=== PATIENT | female | born 1990 | race Caucasian/White ===

== ENCOUNTER 2019-03-18 18:40 | Emergency (ER) | payer SELFPAY ==
[~2019-03-18] VITALS: Ht 170.2 cm; Wt 52.0 kg
[2019-03-18 19:57] VITALS: BP 138/76
== END 2019-03-18 19:57 | disposition left against medical advice (07) | DRG 605 ==
LOC: ED 18:40
DX: S00.83XA Contusion of other part of head, initial encounter (principal); Y35.813A Legal intervention involving manhandling, suspect injured, initial encounter; S60.032A Contusion of left middle finger without damage to nail, initial encounter; X58.XXXA Exposure to other specified factors, initial encounter; Z91.19 Patient's noncompliance with other medical treatment and regimen

== ENCOUNTER 2020-07-24 11:17 | Emergency (ER) | payer SELFPAY ==
[~2020-07-24] VITALS: Ht 170.2 cm; Wt 62.0 kg
[2020-07-24 13:30] VITALS: BP 122/86
== END 2020-07-24 13:30 | disposition home or self-care (01) | DRG 159 ==
LOC: ED 11:17
PROC: 0CQ0XZZ Repair Upper Lip, External Approach (ICD-10-PCS; principal; 2020-07-24)
DX: S01.511A Laceration without foreign body of lip, initial encounter (principal); F17.210 Nicotine dependence, cigarettes, uncomplicated; W22.09XA Striking against other stationary object, initial encounter; Y92.009 Unspecified place in unspecified non-institutional (private) residence as the place of occurrence of the external cause

== ENCOUNTER 2020-07-26 18:14 | Emergency (ER) | payer SELFPAY ==
[~2020-07-26] VITALS: Ht 170.2 cm; Wt 59.1 kg
[2020-07-26 19:04] LABS: HEMATOCRIT 39.9 % (37.0-47.0); HEMOGLOBIN 13.6 g/dl (12.0-16.0); IMMATURE GRANULOCYTES 0.2 % (0.0-5.0); MEAN CELL VOLUME 102.8 fL CALC (80.0-100.0); MEAN CORPUSCULAR HGB 35.1 pG CALC (26.0-32.0); MEAN CORPUSCULAR HGB CONC 34.1 g/dL CAL (32.0-36.0); NEUT# 2.54 thou/uL (2.00-7.15); RED BLOOD COUNT 3.88 mill/uL (4.20-5.60); RED CELL DISTRI WIDTH 12.4 % (11.5-15.5)
[2020-07-26 19:24] LABS: ALBUMIN 3.9 g/dL (3.2-5.0); ALKALINE PHOSPHATASE 82 u/l (38-126); ANION GAP 13 (6-22 (CALC)); BILIRUBIN, TOTAL 0.3 mg/dL (0.0-1.4); BUN 9 mg/dL (7-17); BUN/CREATININE RATIO 16 (12-20 (CALC)); CARBON DIOXIDE 26 mmol/l (22-30); CHLORIDE 110 mmol/l (95-108); CREATININE 0.6 mg/dL (0.5-1.0); GFR > 60 ML/MIN (>=60 (CALC)); GFR FOR AFR.AMER. > 60 ML/MIN (>=60 (CALC)); POTASSIUM 3.3 mmol/l (3.5-5.1); SGOT/AST 62 u/l (14-36); SODIUM 145 mmol/l (137-146); TOTAL PROTEIN 6.7 g/dL (6.3-8.2)
[2020-07-26 19:35] LABS: ETHYL ALCOHOL 380 mg/dl (0-30)
[2020-07-26 22:50] VITALS: BP 126/92
== END 2020-07-26 22:50 | disposition left against medical advice (07) | DRG 894 ==
LOC: ED 18:14
PROVIDERS: Student in an Organized Health Care Education/Training Program
DX: F10.129 Alcohol abuse with intoxication, unspecified (principal); F17.200 Nicotine dependence, unspecified, uncomplicated; Z91.19 Patient's noncompliance with other medical treatment and regimen
CPT/HCPCS: J2060

== ENCOUNTER 2020-10-30 13:49 | Inpatient (IN) | payer SELFPAY ==
[~2020-10-30] VITALS: Ht 170.2 cm; Wt 55.0 kg
--- NOTE | 2020-10-30 13:49 | NUR ---
FOUND OUTSIDE [facility] COMBATIVE SMELLS OF ETOH HX OF. 50MCG KETAMINE IM GIVEN BY EMS. AT [facility] SIDE FOR MADELINEAL
--- NOTE | 2020-10-30 14:25 | NUR ---
PATIENT COMBATIVE KICKING STAFF AND TRYING TO GET OUT OF BED UNSAFELY UNABLE TO FOLLOW COMMANDS DUE TO MENTAL STATE. PATIENT TWISTING AND GETTING ARMS AND LEGA CAUGHT IN SIDERAILS EVEN WITH SEIZURE PADS IN PLACE. MD AT BEDSIDE AND PREPARING FOR INTUBATION.
--- NOTE | 2020-10-30 15:11 | NUR ---
1441 20MG ETOMIDATE GIVEN LAC 1442 100MG ROCURONIUM GIVEN LAC NO EFFECT WITH MEDICATIONS IV NO LONGER FLOWING. MD GIVES ORDER FOR I/O AND REPEAT MEDS. 1445 25M I/O PLACED IN LEFT LEG POSITIVE MARROW RETURN AND SPACE CREATED USING 10ML OF 0.9% SODIUM CHLORIDE. 1449 20MG ETOMIDATE GIVEN VIA I/O 1450 100MG ROCRUONIUM GIVEN VIA I/O 1450 PATIENT INTUBATED 7.5 FR AND 22 AT THE LIP PATIENT TOLERATED WELL O2 DETECTOR AND POSITIVE AUSCULTATION NOTED. 1452 DIPROVAN STARTED 15 MCG/KG/ MIN 1511 MD SETTING UP FOR CENTRAL LINE PLACEMENT IN THE RIJ
--- NOTE | 2020-10-30 15:35 | NUR ---
10F OG PLACED BY
[2020-10-30 15:38] LABS: HEMATOCRIT 44.7 % (37.0-47.0); HEMOGLOBIN 14.6 g/dl (12.0-16.0); IMMATURE GRANULOCYTES 0.2 % (0.0-5.0); MEAN CELL VOLUME 103.2 fL CALC (80.0-100.0); MEAN CORPUSCULAR HGB 33.7 pG CALC (26.0-32.0); MEAN CORPUSCULAR HGB CONC 32.7 g/dL CAL (32.0-36.0); NEUT# 2.5 thou/uL (2.00-7.15); RED BLOOD COUNT 4.33 mill/uL (4.20-5.60); RED CELL DISTRI WIDTH 12.6 % (11.5-15.5)
[2020-10-30 15:47] LABS: HCG SERUM/URINE (NEG/POS) NEGATIVE (NEGATIVE)
[2020-10-30 15:49] LABS: ALBUMIN 4.3 g/dL (3.2-5.0); ALKALINE PHOSPHATASE 90 u/l (38-126); ANION GAP 16 (6-22 (CALC)); BILIRUBIN, TOTAL 0.3 mg/dL (0.0-1.4); BUN 7 mg/dL (7-17); BUN/CREATININE RATIO 13 (12-20 (CALC)); CARBON DIOXIDE 27 mmol/l (22-30); CHLORIDE 111 mmol/l (95-108); CREATININE 0.6 mg/dL (0.5-1.0); GFR > 60 ML/MIN (>=60 (CALC)); GFR FOR AFR.AMER. > 60 ML/MIN (>=60 (CALC)); POTASSIUM 3.4 mmol/l (3.5-5.1); SGOT/AST 54 u/l (14-36); SODIUM 151 mmol/l (137-146); TOTAL PROTEIN 7.9 g/dL (6.3-8.2)
[2020-10-30 15:56] LABS: CPK 285 u/l (30-165)
--- NOTE | 2020-10-30 16:15 | NUR ---
PT REMAINS INTUBATED AN SEDATE THICK CLEAR SECRETIONS SUCTIONED ORALLY
--- NOTE | 2020-10-30 17:00 | NUR ---
PT REMINAS INTUBATED AND SEDATED AND RESTRAINED TO PREVENT SELF EXTUBATION. EASILY VISIBLE FROM NURSES STATION
[2020-10-30 17:10] LABS: URINE BILIRUBIN - DIPSTICK NEGATIVE (NEGATIVE); URINE BLOOD DIPSTICK NEGATIVE (NEGATIVE); URINE COLOR YELLOW; URINE GLUCOSE - DIPSTICK NEGATIVE (NEGATIVE); URINE KETONE NEGATIVE (NEGATIVE); URINE LEUK ESTERASE NEGATIVE (NEGATIVE); URINE NITRITE - DIPSTICK NEGATIVE (Negative); URINE PROTEIN - DIPSTICK NEGATIVE (NEG-TRACE); URINE UROBILINOGEN - DIPSTICK 0.2 E.U./dL (0.2)
--- NOTE | 2020-10-30 17:43 | NUR ---
LINENS CHANGED AND COMFORT CARE PROVIDED, PT SEDATION INCREASED RELATED TO RESPONSIVENESS. WILL CONTINUE TO MONITOR
--- NOTE | 2020-10-30 19:00 | NUR ---
RECEIVED REPORT AND CARE TRANSFERRED TO MYSELF. AWAITING ADMISSION TO [facility]. PT IS UNRESPONSIVE. ON VENT. ET TUBE 7.522 AT LIP LINE. BBS CLEAR. CM SR. NO ECTOPY. IVF/NS-VERSED DRIP-DIPRAVAN DRIP INFUSING INTO TRIPLE LUMEN IN RIGHT NECK. SITE GOOD. NG CONNECTED TO LIS. #10 OG TUBE + ASPIRATION/INSERTION OF AIR PLACEMENT CHECK. BILAT UPPER EXT RESTRAINTS IN PLACE. +CIRC DISTALLY. TWO FINGERS UNDER RESTRAINT. REINOSO PATENT. DRAINING CLEAR BHARATI URINE. IO PRESENT IN LOWER LEG.
--- NOTE | 2020-10-30 20:15 | NUR ---
REPORT CALLED TO [facility]. ROOM NOT YET READY. SHE WILL CALL WHEN ROOM IS CLEANED. PT RESTING. MONITORING PT.
--- NOTE | 2020-10-30 22:20 | NUR ---
RECEIVED FROM ER VIA STRETCHER INTO ICU 7. PATIENT IS INTUBATED AND BAGGED BY RAOUL/SIGN WIRER DURING TRANSPORT FROM ER. TRANSFERRED TO BED WITH 4 PERSON ASSIST. PLACED ON VENT BY RT-VENT SETTINGS TV-450, A/C RATE 18, FIO2 30%, PEEP 5. ORALL ETT IN PLACE TAPED AT 23 AT LIP LINE. O2 SAT 100% BREATH SOUNDS CLEAR. OGT IN PLACE WITH SCANT LIGHT VIRAMONTES OUTPUT. REINOSO DRAINS CLEAR YELLOW URINE. SCD'S PLACED ON RIGHT LEG. IO IN PLACE IN LEFT LEG. RIJTLC IN PLACE NS INFUSING AT 100 ML/HR, BANANA BAG AT 125 ML/HR, PROPOFOL GTT AT 45 MCG/KG/MIN, AND VERSED GTT AT 30 MG/HR. RASS SCORE -3. BILATERAL SOFT WRIST RESTRAINTS IN PLACE. FACILITY MAINTENANCE MANAGER SHOWING SR.
--- NOTE | 2020-10-30 22:29 | NUR ---
REINOSO EMPTIED FOR 800 CC OF CLEAR BHARATI URINE. NG EMPTIED FOR 200 CC OF GASTRIC DRAINAGE. CLAMPED FOR TRANSPORT TO FLOOR. TO ICU WITH RT/VENT/DIPRAVAN/VERSED ON PUMPS AND BANANA BAG INFUSING INTO TRIPLE LUMEN. TO FLOOR WITHOUT INCIDENT. TRANSFERRED TO BED WITH 4 STAFF.
[2020-10-30 22:30] VITALS: BP 138/93
[2020-10-30 22:45] VITALS: BP 125/83
[2020-10-30 23:00] VITALS: BP 107/71
[2020-10-30 23:15] VITALS: BP 103/70
[2020-10-31] VITALS (16 sets, daily range): BP systolic 110–147; BP diastolic 71–99
--- NOTE | 2020-10-31 | NUR ---
VSS. PATIENT OPENS EYES BRIEFLY. CALM AND COOPERATIVE AT THIS TIME. SUX ORALLY FOR THIN CLEAR SECRETIONS.
--- NOTE | 2020-10-31 01:00 | NUR ---
ATEMPTING TO SIT UP IN BED. MOVING LEGS ABOUT. PROPOFOL INCREASED TO 50 MCG/KG/MIN. WILL MONITOR CLOSELY FOR EFFECT. EMOTIONAL SUPPOR TAND REASSURANCE PROVIDED TO PATIENT.
--- NOTE | 2020-10-31 01:15 | NUR ---
STILL RESTLESS. VERSED GTT INCREASED TO 40 MG/HR.
--- NOTE | 2020-10-31 02:00 | NUR ---
RESTING CALMLY AND QUIETLY AT THIS TIME. ILYA EDUARDO STAYED WITH PATIENT FOR APPROX 15 MINUTES PROVIDING REASSURANCE PATIENT ASLEEP AT THIS TIME.
--- NOTE | 2020-10-31 04:00 | NUR ---
PATIENT MORE RESPONSIVE MOVING HEAD FROM SIDE TO SIDE TRIGGERING VENT ALARM. PROPOFOL TITRATED TO 55 MCG/KG/MIN. VSS. TOLERATING SEDATION WELL. SR-ST ON MONITOR.
--- NOTE | 2020-10-31 05:00 | NUR ---
BLOOD DRAWN FOR AM LABS FROM [facility]. GOOD BLOOD RETURN FLUSHED PRE AND POST BLOOD DRAW PER PROTOCOL.
--- NOTE | 2020-10-31 05:15 | NUR ---
PATIENT VERY RESTLESS. VERSED INCREASED TO 60 MG/HR AND PROPOFOL INCREASED TO 65 MCG/KG/MIN. WILL CONTINUE TO MONITOR CLOSELY.
[2020-10-31 06:26] LABS: MEAN CELL VOLUME 105.2 fL CALC (80.0-100.0); MEAN CORPUSCULAR HGB CONC 32.4 g/dL CAL (32.0-36.0); RED BLOOD COUNT 3.29 mill/uL (4.20-5.60); RED CELL DISTRI WIDTH 12.9 % (11.5-15.5)
--- NOTE | 2020-10-31 06:30 | NUR ---
CONTINUES TO BE RESTLESS AND AGITATED. VERSED CURRENTLY RUNNING AT 80 MG/HR AND PROPOFOL AT 65 MCG/KG/MIN. WITH RASS -1.
[2020-10-31 06:37] LABS: HEMATOCRIT 34.6 % (37.0-47.0); HEMOGLOBIN 11.2 g/dl (12.0-16.0)
[2020-10-31 06:43] LABS: ALKALINE PHOSPHATASE 60 u/l (38-126); ANION GAP 10 (6-22 (CALC)); BILIRUBIN, TOTAL 0.2 mg/dL (0.0-1.4); BUN 8 mg/dL (7-17); BUN/CREATININE RATIO 13 (12-20 (CALC)); CARBON DIOXIDE 25 mmol/l (22-30); CHLORIDE 113 mmol/l (95-108); CREATININE 0.6 mg/dL (0.5-1.0); ETHYL ALCOHOL 54 mg/dl (0-30); GFR > 60 ML/MIN (>=60 (CALC)); GFR FOR AFR.AMER. > 60 ML/MIN (>=60 (CALC)); POTASSIUM 3.1 mmol/l (3.5-5.1); SGOT/AST 38 u/l (14-36); SODIUM 145 mmol/l (137-146)
[2020-10-31 06:58] LABS: ALBUMIN 2.8 g/dL (3.2-5.0); TOTAL PROTEIN 5.3 g/dL (6.3-8.2)
--- NOTE | 2020-10-31 08:00 | NUR ---
PT SEEN AT REST IN THE BED, VENTED AND SEDATED. PT WITH VERSED AND PROPOFOL INFUSING TO ACHIEVE SAME. VSS, PT IN NO DISTRESS, NOT WAKENED BY VOICE.
--- NOTE | 2020-10-31 10:00 | NUR ---
PT CONTINUES ON VENT WITH PROPOFOL AND VERSED TO SEDATE. NO CHANGE IN STATUS. PT OCCASIONALLY MOVES AROUND A LITTLE IN THE ROOM, NO DISTRESS NOTED.
--- NOTE | 2020-10-31 14:00 | NUR ---
PT WILL BE SWITCHED TO ATIVAN DRIP ALONG WITH PROPOFOL INSTEAD OF VERSED. LAST BAG OF VERSED INFUSES NOW.
--- NOTE | 2020-10-31 16:47 | NUR ---
PT DOING WELL WITH ATIVAN DRIP. IT WAS TITRATED TO 30 ML/HR AND ALLOWS PT TO REST AND SOMETIMES ADJUST HERSELF FOR COMFORT IN BED.
--- NOTE | 2020-10-31 18:23 | NUR ---
PT REMAINS BEFORE, SEDATED WITHOUT MUCH MOVING AROUND. BOYFRIEND COLTON CALLED AND WAS UPDATED ON HER STATUS.
--- NOTE | 2020-10-31 19:00 | NUR ---
REPORT RECEIVED FROM Kim MALLOY RN, CARE OF PT ASSUMED AT THIS TIME.
--- NOTE | 2020-10-31 20:35 | NUR ---
PT CALM, 7.[address], 23CM AT LIP, FIO2 30%, TV 450, PEEP 5. OG IN PLACE WITH MINIMAL DARK BROWN OUTPUT. RIJ TLC PATENT, DRESSING C/D/I, INFUSING NS @ 100ML/H, ATIVAN GTT @ 30ML/H AND PROPOFOL @ 75MCG/KG/MIN. B/L SOFT WRIST RESTRAINTS SECURED. HOB ELEVATED 30 DEGREES. SCDS ON. SPO2 100%, LUNG SOUNDS CLEAR, BOWEL SOUNDS PRESENT. REINOSO SECURED, UNKINKED, UNOBSTRUCTED, DRAINING TO GRAVITY. URINE WITH DARK GREEN COLOR. NSR ON MONITOR.
--- NOTE | 2020-10-31 22:40 | NUR ---
PT REPOSITIONED AND TURNED WITH ASSIST FROM Samuel MOLINA RN, ETT SUCTIONING AND ORAL SUCTIONING COMPLETED, PT HAS THICK YELLOW/VIRAMONTES SECRETIONS. ORAL CARE PROVIDED AND FACE WASHED.
[2020-11-01] VITALS (105 sets, daily range): BP systolic 107–156; BP diastolic 56–96
--- NOTE | 2020-11-01 | NUR ---
PT APPEARS CALM AND COMFORTABLE. ETT REMAINS IN PLACE. SPO2 @ 100%. PROPOFOL INFUSING AT 75MCG/KG/MIN AND ATIVAN INFUSING AT 30ML/H. PT REPOSITIONED FOR COMFORT. MOUTH SWABBED FOR COMFORT.
--- NOTE | 2020-11-01 05:01 | NUR ---
ROLANDO IN ROOM TO DRAW
--- NOTE | 2020-11-01 05:20 | NUR ---
ABG RESULTS REVIEWED AND ASSESED
--- NOTE | 2020-11-01 06:14 | NUR ---
[employer] LABORER IN ROOM FOR PCXR.
--- NOTE | 2020-11-01 06:29 | NUR ---
PER RADIOLOGY, OG TUBE ADVANCED 15CM.
--- NOTE | 2020-11-01 06:45 | NUR ---
REPORT RECEIVED FROM RONDA ARMSTRONG. CARE ASSUMED.
--- NOTE | 2020-11-01 07:00 | NUR ---
PT RESTING IN BED INTUBATED AND SEDATED. WILL BEGIN WEANING SEDATION PER TITRATION CHARTING. SHIFT ASSESSMENT COMPLETED AT THIS TIME. CALL LIGHT IN REACH. WILL CONTINUE TO MONITOR.
--- NOTE | 2020-11-01 07:50 | NUR ---
DR ROMAN AT BEDSIDE AT THIS TIME.
--- NOTE | 2020-11-01 08:06 | NUR ---
PT RESTING COMFORTABLY. HOB AT 30 DEGRESS. ETT PATENT AND STABLE. DECURED APPROPRIATELY. PT RECIEVED ON ALL DOCUMENTED PARAMETERS. NO DISTRESS NOTED. VITAL SIGNS STABLE. CODING QUALITY COORDINATOR TO MONITOR. POSSIBLE EXTUBATION TODAY S/P SEDATION VACATION AND SBT.
--- NOTE | 2020-11-01 09:51 | NUR ---
PT AWAKE BUT DROWSY. PT ABLE TO FOLLOW COMMANDS AT THIS TIEM.
--- NOTE | 2020-11-01 11:19 | NUR ---
PT HEART RATE 140S. PT HAS THICK SECRETIONS AT MOUTH. RT AT BEDSIDE suctioned patient. [facility] aprn notified.new orders received.
--- NOTE | 2020-11-01 12:09 | NUR ---
RADIOLOGY AT BEDSIDE FOR STAT CXR.
--- NOTE | 2020-11-01 12:14 | NUR ---
KADI JACKSON WHEAT COMBINE DRIVER RADIOLOGY CALLED AND STATED THAT OG TUBE NEEDED TO BE ADVANCED. THIS NURSE INTO ROOM TO EVALUATE TUBE. TUBE IS ADVANCED MAXIMUM AND UNABLE TO VERIFY WITH AUSCULTATION. REMOVED OG. PLACED NEW OG AND VERIFIED BY AUSCULTATION AND POSITIVE GASTRIC CONTENT RETURN. WILL CONTINUE TO MONITOR CLOELY.
--- NOTE | 2020-11-01 14:00 | NUR ---
BEGAN WEANING SEDATION AGAIN AFTER DIURESING WITH LASIX. SEE TITRATION CHARTING.
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
--- NOTE | 2020-11-01 16:22 | NUR ---
PT REPORT RECEIVED FROM SHAGGY ARMSTRONG FOR CONTINUATION OF CARE. PT REMAINS INTUBATED WITH DIPROVAN AND ATIVAN DRIP INFUSING.
--- NOTE | 2020-11-01 17:19 | NUR ---
FRIEND CRAIG CALLED FOR UPDATE ON PT. STATES HE WILL BE THE ONE TO COME PICK HER UP WHEN SHE DOES GET DISCHARGED.
--- NOTE | 2020-11-01 19:00 | NUR ---
REPORT RECEIVED FROM Stu SANTANA RN, CARE OF PT ASSUMED AT THIS TIME.
--- NOTE | 2020-11-01 19:10 | NUR ---
CALL RECIEVED FROM BETO VASQUEZ, PT'S MOTHER , APPROPRIATE COMMUNICATION CODE PROVIDED. UPDATES ON PT'S STATUS PROVIDED. QUESTIONS ANSWERED. CALLER DENIES FURTHER QUESTIONS.
--- NOTE | 2020-11-01 20:00 | NUR ---
PT ON RIGHT SIDE, PT REPOSITIONED SUPINE. ETT IN PLACE AND SECURED, 23CM AT LIP. RESPIRATIONS REGULAR, LUNGS CLEAR. LARGE AMOUNT THICK YELLOW SECRETIONS IN MOUTH SUCTIONED. ETT IN-LINE SUCTION PERFORMED. SECRETIONS THICK, VIRAMONTES AND MINIMAL. ORAL CARE PERFORMED. OG TUBE SECURED IN PLACE. SET TO LIS. OUTPUT THIN. GREEN. BOWEL SOUNDS PRESENT, ABD SOFT. PT SEDATED, GRIMACES WHEN REPOSITIONED AND SUCTIONED. REINOSO SECURED TO LEG, TUBING UNKINKED AND UNOBSTRUCTED, DRAINING TO GRAVITY, URINE IS CLEAR WITH GREEN TINT SECONDARY TO PROPOFOL. SCDS TO BLE. HOB ELEVATED 45 DEGREES. PT APPEARS COMFORTABLE AND IN NO DISTRESS. HEMODYNAMICS STABLE ON MONITOR.
--- NOTE | 2020-11-01 20:43 | NUR ---
SCHEDULED MEDICATIONS ADMINISTERED, SEE E-MAR.
--- NOTE | 2020-11-01 22:00 | NUR ---
PT REMAINS SEDATED, INTUBATED WITH ETT TUBE SECURED, OG TUBE SECURED AND TO LIS DRAINING DARK GREEN OUTPUT. R-IJ TLC DRESSING REMAINS INTACT AND PATENT WITH NS @ 100ML/H, ATIVAN GTT @ 25ML/H, AND PROPOFOL AT 75MCG/KG/MIN. HOB REMAINS ELEVATED AT 30 DEGREES. PT REPOSITIONED FOR COMFORT. ORAL AND ETT SUCTION DONE. PT TOLERATES WELL. SECRETIONS ARE THICK YELLOW/VIRAMONTES AND MINIMAL. ORAL CARE COMPLETE. B/L SOFT WRIST RESTRAINTS REMAIN SECURE. REINOSO REMIAN SECURE, UNOBSTRUCTED, AND UNKINKED, DRAINING AMOUNTS ADEQUATE OF GREEN TINTED URINE. SCDS IN PLACE.
--- NOTE | 2020-11-01 22:45 | NUR ---
NEW BOTTLE PROPOFOL HUNG, SEE E-MAR. TUBING CHANGED AT THIS TIME.
[2020-11-02] VITALS (18 sets, daily range): BP systolic 118–168; BP diastolic 67–95
--- NOTE | 2020-11-02 04:20 | NUR ---
PRESCRIBED LAB WORK DRAWN FROM PT'S R-IJ TLC PER [facility] POLICY. 3 LUMENS PATENT WITH GOOD BLOOD RETURN.
--- NOTE | 2020-11-02 04:55 | NUR ---
NGT CANISTER WITH 900 ML OF DARK GREEN GASTRIC CONTENT. CANISTER REPLACE WITH NEW CANISTER.
[2020-11-02 05:01] LABS: HEMATOCRIT 33.9 % (37.0-47.0); HEMOGLOBIN 11.2 g/dl (12.0-16.0); MEAN CELL VOLUME 102.1 fL CALC (80.0-100.0); MEAN CORPUSCULAR HGB 33.7 pG CALC (26.0-32.0); RED BLOOD COUNT 3.32 mill/uL (4.20-5.60); RED CELL DISTRI WIDTH 12.6 % (11.5-15.5)
[2020-11-02 05:29] LABS: ALBUMIN 2.6 g/dL (3.2-5.0); ALKALINE PHOSPHATASE 87 u/l (38-126); ANION GAP 9 (6-22 (CALC)); BUN 4 mg/dL (7-17); BUN/CREATININE RATIO 9 (12-20 (CALC)); CARBON DIOXIDE 28 mmol/l (22-30); CHLORIDE 102 mmol/l (95-108); CREATININE 0.5 mg/dL (0.5-1.0); GFR > 60 ML/MIN (>=60 (CALC)); GFR FOR AFR.AMER. > 60 ML/MIN (>=60 (CALC)); POTASSIUM 2.5 mmol/l (3.5-5.1); SGOT/AST 51 u/l (14-36); SODIUM 138 mmol/l (137-146); TOTAL PROTEIN 5.2 g/dL (6.3-8.2)
[2020-11-02 05:38] LABS: BILIRUBIN, TOTAL 0.4 mg/dL (0.0-1.4)
--- NOTE | 2020-11-02 05:59 | NUR ---
PER ROLANDO RT, BASED ON ABG RESULTS RESPIRATORY RATE ON VENT DECREASED TO 14/MIN
--- NOTE | 2020-11-02 09:00 | NUR ---
PT SEEN BY DR ROMAN THIS AM, TAPERING OFF PROPOFOL AND ATIVAN BEGUN. PT SEEN INTUBATED, SEDATED, VSS. LUNGS CLEAR, 30% OXYGEN. REINOSO IN PLACE, OG DRAINS GREENISH LIQUID. PT NOT RESPONSIVE PER SEDATIVES.
--- NOTE | 2020-11-02 11:42 | NUR ---
PT HAS BEEN WEANED OFF SEDATION AND HAS BEEN EXTUBATED. SHE HAD ABUNDANCE OF SECRETIONS WHICH WERE SUCTIONED. AT THIS TIME PT IS ON 3 LPM NC, SATS 95%. PT IS INCREASINGLY RESPONSIVE, ABLE TO CLEAR HER OWN SECRETIONS. RT DENZEL AT BEDSIDE THROUGHOUT EXTUBATION AND AFTER.
--- NOTE | 2020-11-02 15:29 | NUR ---
PT HAS CONTINUED WITH THICK SECRETIONS, SUCTIONED OFTEN. AT THIS TIME SHE IS NOT NEEDING SUCTIONING OFTEN EARLIER, PERHAPS EVERY HALF HOUR. PT IS RESTLESS IN THE BED, MOVES ALL AROUND BUT DOES NOT HAVE THE STREHGTH TO CLIMB OOB.
--- NOTE | 2020-11-02 16:18 | NUR ---
PT HEARD WITH COUGH AND RATTLING FREQUENTLY, CONTINUES TO REQUIRE SUCTION. SATS CONTINUE 95-96% ON 3 LPM NC.
--- NOTE | 2020-11-02 18:25 | NUR ---
PT IS NOW ATTEMPTING TO SAY WORDS, BUT THEY ARE UNINTELLIGIBLE AT THIS TIME. SHE IS SUCTIONED EVERY HALF HOUR OR SO PER PRODUCTIVE COUGH WITH INEFFECTIVE CLEARANCE. PT HAS NOT ATTEMPTED TO GET OOB BUT SHE ROCKS BACK AND FORTH AND PUTS FEET AGAINST SIDERAIL. SATS 96-97% ON 3 LPM NC.
--- NOTE | 2020-11-02 19:45 | NUR ---
drowsy. does not follow commands. sx copious amt thick yellow sputum from throat. rt notified of need for deep sx. incont scant amt liquid stool. pt cleansed placed in recovery position. o2 cont 5 l/m per nc. phototypesetting equipment monitor shows sinus tach 111. rij tlc in place ns infusing @ 100cchr. jacinto cath in place. urine clear yellow. bilat scds & fall precautions cont. bed alarm activated. requires total care for all needs.
--- NOTE | 2020-11-02 20:15 | NUR ---
pt lying on back. coughing & unable to clear throat. sx for copious amt thick yellow sputum. placed again in recovery position.
--- NOTE | 2020-11-02 21:00 | NUR ---
pt lying on back. placed in recovery position.
[2020-11-03] VITALS (15 sets, daily range): BP systolic 132–178; BP diastolic 76–108
--- NOTE | 2020-11-03 00:01 | NUR ---
has been sx several times this shift & placed in the recovery position. pt turns self on back. legal internship shows sinus tach hr 114.
--- NOTE | 2020-11-03 02:00 | NUR ---
eyes closed. no apparent distress. cloth checker shows sinus tach hr 106.
--- NOTE | 2020-11-03 03:50 | NUR ---
pt sitting up in bed. drowsy. asked pt where she was & she answered jos[place]. asked pt why she was here & she didn't answer. bath given. assisted to bedside chair x 2 assists. pt is very weak.
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
--- NOTE | 2020-11-03 05:10 | NUR ---
assisted back to bed per request. requested to "smoke a little pot." request denied.
--- NOTE | 2020-11-03 05:53 | NUR ---
awake. slow with movements. sits up in bed for short time. legs over side rails @ times. bed alarm cont.
--- NOTE | 2020-11-03 06:00 | NUR ---
blood drawn & sent to lab.
--- NOTE | 2020-11-03 06:21 | NUR ---
bed alarm sounding. pt sitting on side of bed. repositioned. bed alarm reactivated.
[2020-11-03 06:44] LABS: ANION GAP 10 (6-22 (CALC)); BUN 4 mg/dL (7-17); BUN/CREATININE RATIO 10 (12-20 (CALC)); CARBON DIOXIDE 30 mmol/l (22-30); CHLORIDE 106 mmol/l (95-108); CREATININE 0.4 mg/dL (0.5-1.0); GFR > 60 ML/MIN (>=60 (CALC)); GFR FOR AFR.AMER. > 60 ML/MIN (>=60 (CALC)); MAGNESIUM 1.7 mg/dL (1.6-2.3); SODIUM 142 mmol/l (137-146)
[2020-11-03 06:45] LABS: POTASSIUM 3.5 mmol/l (3.5-5.1)
--- NOTE | 2020-11-03 06:56 | NUR ---
report received from fast food shift lead, pt appears very restless, trying to sit up in bed, not listening to staff to lay back, alert but does not appear to be oriented, lungs coarse sounding, suctioned pt.
--- NOTE | 2020-11-03 07:25 | NUR ---
REPOSITIONED PT TO LAYING ON RIGHT SIDE. BED ALARM REMAINS ON, BED IN LOW POSITION, SIDE RAILS UP AND CALL LIGHT WITHIN REACH
--- NOTE | 2020-11-03 08:29 | NUR ---
THICK SECRETIONS SUCTIONED FROM PT AFTER RASPY COARSE SOUND AND COUGHING. PT AWAKE, STATES SHE IS IN [facility] AND NAME, BUT DOES NOT KNOW ANYTHING ELSE. SLOW TO RESPOND, PUPILS DILATED BUT REACTIVE. PT TRYING TO GET OUT OF BED. PULSE OX ON GREAT TOE DUE TO PT CONSTANTLY REMOVING MONITER LEADS AND FIGHTING WHEN TRYING TO PLACE THEM BACK ON.
--- NOTE | 2020-11-03 08:44 | NUR ---
PT ASKING IF SHE COULD SMOKE A LITTLE POT, ADVISED THAT IT WAS AGAINST POLICY. REQUEST FOR NICOTINE PATCH ORDER
--- NOTE | 2020-11-03 08:55 | NUR ---
REMOVED REINOSO PER PT REQUEST. PT DID SAY THANK YOU AFTER REMOVAL
--- NOTE | 2020-11-03 09:13 | NUR ---
PT REMAINS TRYING TO GET OUT OF BED, SITS STRAIGHT UP AND PUTS LEGS OVER SIDE RAILS. REORIENTED PT AND WITH HELP OF ANOTHER STAFF PLACED PT BACK UP IN BED AND PLACED WARM BLANKET ON PT.
--- NOTE | 2020-11-03 09:50 | NUR ---
NOTIIED OF PT GETTING OOB UNSAFE, OBTAINED RESTRAINT ORDER PLACED ON CHART, APPLIED SOFT WRIST TO ARMANI ARMS, TRIED TO REORIENT BUT PT NOT LISTENING.
--- NOTE | 2020-11-03 10:30 | NUR ---
PT REFUSING ORAL CARE, REFUSING BATH, MOUTH, TONGUE DRY AND CRACKED. REMAINS COUGHING UP SECRETIONS, FIGHTING RESTRAINTS.
--- NOTE | 2020-11-03 11:41 | NUR ---
PT REQUESTING SOME WATER, GAVE HER THE MOUTH SWABS WITH BOTTLED WATER. AND PT WAS ABLE TO SUCK ON THE SWABS, PT THANKING STAFF. PT APPEARS TO BE MORE ORIENTED AT THIS TIME.
--- NOTE | 2020-11-03 12:45 | NUR ---
PT REMAINS TRYING TO SIT UP IN BED, STATING SHE WANTS TO GO HOME, SHE IS FINE, TRYING TO PUT LEGS OVER SIDE RAILS TO GET OUT OF BED, CONSTANTLY TRYING TO REORIENT PT, WILL LAY PT BACK DOWN INTO BED AND GO OUT OF ROOM AND SHE IS BACK SITTING UP TRYING TO CLIMB OUT OF BED WITH LEGS. VITAL SIGNS STABLE, PT DENIES ANY PAIN OR SOB. STATES I CAN GET UP ON MY OWN AND WALK OUT OF HERE. ADVISED PT THAT SHE IS TOO WEAK AND SHE NEEDS TO STAY LAYING DOWN.
--- NOTE | 2020-11-03 13:28 | NUR ---
PT YELLING NURSE I WANT TO GO HOME, NURSE I WANT TO GO F HOME, CONSTANTLY. TRIED TO REORIENT PT AND EXPLAIN SHE CAN NOT GO HOME, PT GETTING AGITATED, STATING I TOLD YOU I JUST WANT TO GO HOME.
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
--- NOTE | 2020-11-03 15:26 | NUR ---
PT RESTING QUIETLY AT THIS TIME, REMOVED WRIST RESTRAINTS FOR TESTING, WITHIN 5 MIN PT WAS TRYING TO CLIMB OUT OF BED.
--- NOTE | 2020-11-03 16:58 | NUR ---
PT SITTING UP IN BED REQUESTING SOMETHING TO EAT AND DRINK. GAVE PT A COUPLE OF BITES OF ICE CREAM AND APPROX 1/4 CUP OF ICE WATER AND TOLD PT THAT WE WOULD SEE HOW SHE HANDLES THAT BEFORE GIVING HER MORE.
--- NOTE | 2020-11-03 17:09 | NUR ---
PT REQUESTING A FEW MORE SIPS OF WATER, GAVE A FEW MORE WHICH PT WAS ABLE TO SWALLOW WITH NO PROBLEMS, PT APPEARS TO BE MORE ALERT/ORIENTED AND REMOVED ANKLE RESTRAINTS TO SEE HOW PT REACTS
--- NOTE | 2020-11-03 18:26 | NUR ---
PT WAS GIVEN SOME MASHED POTATOES AND ICE CREAM TO EAT, ATE WELL, DRANK WELL, REMOVED WRIST RESTRAINTS DURING EATING, BUT PT STARTED BECOMING AGITATED AFTER SHE WAS DONE AND WRIST RESTRAINTS WERE PLACED BACK ON. UNABLE TO REORIENT PT TO NOT GETTING OUT OF BED TO LEAVE TO GO HOME
--- NOTE | 2020-11-03 19:15 | NUR ---
drowsy when awakened. no resp diff. follows commands. supervisor brake repair shows sinus rhythm hr 96. rij tlc in place. ns infusing @ 100cchr. po fluids taken fair. voids per bsc. fall precautions & bed alarm conts.
--- NOTE | 2020-11-03 20:40 | NUR ---
pt crying & said "my family is outside waiting for me." instructed pt no family was outside. requested to use cordless phone-given.
--- NOTE | 2020-11-03 22:00 | NUR ---
eyes closed. nad. almond cutting machine tender shows sinus rhythm hr 96. bed alarm cont.
--- NOTE | 2020-11-04 00:01 | NUR ---
eyes closed. no distress. ivf cont. monitor car operator shows sinus tach hr 104.
[2020-11-04 01:00] VITALS: BP 135/89
[2020-11-04 02:00] VITALS: BP 150/97
--- NOTE | 2020-11-04 02:00 | NUR ---
pt @ foot of bed. instructed pt to adjust self in bed. pt complied. juice given as request.
[2020-11-04 04:00] VITALS: BP 133/92
--- NOTE | 2020-11-04 04:00 | NUR ---
eyes closed. no distress. cardiac cath rn shows sinus tach hr 100.
--- NOTE | 2020-11-04 05:00 | NUR ---
dsg to rij loose-changed.
[2020-11-04 06:00] VITALS: BP 160/106
--- NOTE | 2020-11-04 07:23 | NUR ---
PT REPORT RECEIVED, PT ASKING WHEN SHE CAN GO HOME, STATING HER FAMILY IS WAITING FOR HER OUTSIDE, EXPLAINED THAT NOBODY IS WAITING FOR HER OUTSIDE AND THIS TIME OF DAY, THAT SHE NEEDS TO WAIT UNTIL DOCTOR HAS SEEN HER AND WE CAN CALL FAMILY IF THAT IS WHAT IS GOING TO HAPPEN.
--- NOTE | 2020-11-04 07:51 | NUR ---
PT UNABLE TO MOVE HANDS AND ARMS TO FEED HERSELF. PT IS MORE ALERT/ORIENTED AND FOLLOWING COMMANDS BUT VERY UNSTEADY WITH MOTOR MOVEMENTS.
[2020-11-04 08:00] VITALS: BP 140/98
--- NOTE | 2020-11-04 08:03 | NUR ---
PT REQUESTING COKE TO DRINK, IS NOT ABLE TO HOLD CAN ON OWN, BUT HAS NO PROBLEM WITH THE SWALLOWING IF GIVEN TO HER. PT HOLD IS VERY SHAKEY, NO AGRESSIVE BEHAVIOR AT THIS TIME, PT IS VERY POLITE, IS ALERT/ORIENTED X3.
[2020-11-04] MEDS ORDERED: FOLIC ACID1 M1 PO (08:31)
[2020-11-04] MEDS ORDERED: VITAMIN B-1100 M1 PO (08:31)
[2020-11-04] MEDS ORDERED: AMOX/K CLAV875 M1 PO (08:31)
--- NOTE | 2020-11-04 08:46 | NUR ---
PT WAS TOLD THAT SHE WOULD BE ABLE TO BE DISCHARGED THIS AM, ASKED FOR PHONE, IS UNABLE AT THIS TIME TO GET HOLD OF ANYONE TO PICK HER UP
--- NOTE | 2020-11-04 09:28 | NUR ---
STENCIL MACHINE OPERATOR HERE SPEAKING TO PT ABOUT ALCOHOL AND DRUG ABUSE AND GAVE HER INFORMATION. RIJ PULLED PT TOLERATED IT WELL, APPLIED PRESSURE DRESSING.
--- NOTE | 2020-11-04 09:31 | NUR ---
CALLED BOYFRIEND FOR CARD SERVICES SPECIALIST, HE STATES HE WILL MEED US OUT IN DRIVEWAY WHEN WE BRING HER OUT
--- NOTE | 2020-11-04 09:42 | NUR ---
PT PLACED IN W/C TO WAIT FOR PICKUP, PT VERY UNSTEADY
--- NOTE | 2020-11-04 10:18 | NUR ---
PT PLACED IN W/C AND TAKEN DOWN TO PARKING LOT AND PLACED IN TRUCK SEAT WITH SAND HAULER.
== END 2020-11-04 10:10 | disposition home or self-care (01) | DRG 896 ==
LOC: ED 13:49 → ED-I 18:55 → ED 19:12 → ICU 19:13
PROVIDERS: Family Medicine; Nurse Practitioner Family; ADMIT Internal Medicine; ATTEND Internal Medicine
PROC: 0BH17EZ Insertion of Endotracheal Airway into Trachea, Via Natural or Artificial Opening (ICD-10-PCS; principal; 2020-10-30)
PROC: 5A1945Z Respiratory Ventilation, 24-96 Consecutive Hours (ICD-10-PCS; 2020-10-30)
PROC: 02HV33Z Insertion of Infusion Device into Superior Vena Cava, Percutaneous Approach (ICD-10-PCS; 2020-10-30)
PROC: 0D9670Z Drainage of Stomach with Drainage Device, Via Natural or Artificial Opening (ICD-10-PCS; 2020-10-30)
DX: F10.229 Alcohol dependence with intoxication, unspecified (principal); J96.00 Acute respiratory failure, unspecified whether with hypoxia or hypercapnia; G93.49 Other encephalopathy; F14.129 Cocaine abuse with intoxication, unspecified; Y90.8 Blood alcohol level of 240 mg/100 ml or more; T17.918A Gastric contents in respiratory tract, part unspecified causing other injury, initial encounter; R11.10 Vomiting, unspecified; R45.1 Restlessness and agitation; Z20.822 Contact with and (suspected) exposure to COVID-19
CPT/HCPCS: J1650; J2060; J3475

== ENCOUNTER 2020-12-17 15:05 | Emergency (ER) | payer SELFPAY ==
[~2020-12-17] VITALS: Ht 170.2 cm; Wt 60.0 kg
[~2020-12-17 15:05] MED LIST: AMOX/K CLAV875 M1 PO; FOLIC ACID1 M1 PO; VITAMIN B-1100 M1 PO
[2020-12-17 15:40] LABS: IMMATURE GRANULOCYTES 0.2 % (0.0-5.0); MEAN CELL VOLUME 97.6 fL CALC (80.0-100.0); MEAN CORPUSCULAR HGB CONC 32.8 g/dL CAL (32.0-36.0); NEUT# 1.72 thou/uL (2.00-7.15); RED BLOOD COUNT 4.62 mill/uL (4.20-5.60); RED CELL DISTRI WIDTH 13.9 % (11.5-15.5)
[2020-12-17 15:43] LABS: HEMATOCRIT 45.1 % (37.0-47.0); HEMOGLOBIN 14.8 g/dl (12.0-16.0)
[2020-12-17 15:57] LABS: ALKALINE PHOSPHATASE 111 u/l (38-126); BILIRUBIN, TOTAL 0.4 mg/dL (0.0-1.4); BUN 6 mg/dL (7-17); BUN/CREATININE RATIO 10 (12-20 (CALC)); CHLORIDE 107 mmol/l (95-108); CREATININE 0.6 mg/dL (0.5-1.0); GFR > 60 ML/MIN (>=60 (CALC)); GFR FOR AFR.AMER. > 60 ML/MIN (>=60 (CALC)); POTASSIUM 4.2 mmol/l (3.5-5.1); SGOT/AST 71 u/l (14-36); SODIUM 144 mmol/l (137-146)
[2020-12-17 16:04] LABS: ALBUMIN 4.6 g/dL (3.2-5.0); ANION GAP 18 (6-22 (CALC)); CARBON DIOXIDE 23 mmol/l (22-30); TOTAL PROTEIN 8.1 g/dL (6.3-8.2)
[2020-12-17 16:06] LABS: ETHYL ALCOHOL 406 mg/dl (0-30)
[2020-12-18 00:35] VITALS: BP 126/78
== END 2020-12-18 00:35 | disposition home or self-care (01) | DRG 897 ==
LOC: ED 15:05
DX: F10.129 Alcohol abuse with intoxication, unspecified (principal); F17.200 Nicotine dependence, unspecified, uncomplicated; Y90.8 Blood alcohol level of 240 mg/100 ml or more
CPT/HCPCS: J2060

== ENCOUNTER 2021-01-08 18:53 | Emergency (ER) | payer SELFPAY ==
[~2021-01-08] VITALS: Ht 170.2 cm; Wt 55.0 kg
[2021-01-08 20:25] LABS: HEMOGLOBIN 14.6 g/dl (12.0-16.0); IMMATURE GRANULOCYTES 0.3 % (0.0-5.0); MEAN CELL VOLUME 97.8 fL CALC (80.0-100.0); MEAN CORPUSCULAR HGB 31.7 pG CALC (26.0-32.0); MEAN CORPUSCULAR HGB CONC 32.4 g/dL CAL (32.0-36.0); NEUT# 1.41 thou/uL (2.00-7.15); RED BLOOD COUNT 4.6 mill/uL (4.20-5.60); RED CELL DISTRI WIDTH 14.8 % (11.5-15.5)
[2021-01-08 20:44] LABS: ALBUMIN 4.3 g/dL (3.2-5.0); ALKALINE PHOSPHATASE 104 u/l (38-126); ANION GAP 15 (6-22 (CALC)); BILIRUBIN, TOTAL 0.5 mg/dL (0.0-1.4); BUN 6 mg/dL (7-17); BUN/CREATININE RATIO 9 (12-20 (CALC)); CARBON DIOXIDE 27 mmol/l (22-30); CHLORIDE 106 mmol/l (95-108); CREATININE 0.6 mg/dL (0.5-1.0); GFR > 60 ML/MIN (>=60 (CALC)); GFR FOR AFR.AMER. > 60 ML/MIN (>=60 (CALC)); POTASSIUM 3.7 mmol/l (3.5-5.1); SGOT/AST 94 u/l (14-36); SODIUM 144 mmol/l (137-146); TOTAL PROTEIN 7.8 g/dL (6.3-8.2)
[2021-01-08 20:56] LABS: MYOGLOBIN 102 ng/mL (0 - 62)
[2021-01-08 22:59] LABS: URINE BILIRUBIN - DIPSTICK NEGATIVE (NEGATIVE); URINE BLOOD DIPSTICK NEGATIVE (NEGATIVE); URINE COLOR YELLOW; URINE GLUCOSE - DIPSTICK NEGATIVE (NEGATIVE); URINE KETONE NEGATIVE (NEGATIVE); URINE LEUK ESTERASE NEGATIVE (NEGATIVE); URINE PROTEIN - DIPSTICK NEGATIVE (NEG-TRACE); URINE UROBILINOGEN - DIPSTICK 0.2 E.U./dL (0.2)
[2021-01-08 23:01] LABS: URINE NITRITE - DIPSTICK NEGATIVE (Negative)
[2021-01-09] MEDS ORDERED: PREVACID30 M3 PO (05:49)
[2021-01-09 07:08] VITALS: BP 122/74
== END 2021-01-09 07:10 | disposition home or self-care (01) | DRG 897 ==
LOC: ED 18:53
PROVIDERS: Emergency Medicine
DX: F10.129 Alcohol abuse with intoxication, unspecified (principal); F14.10 Cocaine abuse, uncomplicated; Y90.8 Blood alcohol level of 240 mg/100 ml or more; F17.200 Nicotine dependence, unspecified, uncomplicated; Z78.1 Physical restraint status
CPT/HCPCS: J2060

== ENCOUNTER 2021-02-04 | Emergency (ER) | payer SELFPAY ==
[~2021-02-04] MED LIST changes: +PREVACID30 M3 PO
[2021-02-04 22:47] LABS: HEMATOCRIT 44.1 % (37.0-47.0); HEMOGLOBIN 14.5 g/dl (12.0-16.0); IMMATURE GRANULOCYTES 0.2 % (0.0-5.0); MEAN CELL VOLUME 97.4 fL CALC (80.0-100.0); MEAN CORPUSCULAR HGB CONC 32.9 g/dL CAL (32.0-36.0); NEUT# 1.83 thou/uL (2.00-7.15); RED BLOOD COUNT 4.53 mill/uL (4.20-5.60); RED CELL DISTRI WIDTH 15.6 % (11.5-15.5)
[2021-02-04 23:18] LABS: ALBUMIN 4.5 g/dL (3.2-5.0); ALKALINE PHOSPHATASE 84 u/l (38-126); ANION GAP 15 (6-22 (CALC)); BILIRUBIN, TOTAL 0.5 mg/dL (0.0-1.4); BUN 7 mg/dL (7-17); BUN/CREATININE RATIO 12 (12-20 (CALC)); CARBON DIOXIDE 25 mmol/l (22-30); CHLORIDE 107 mmol/l (95-108); CREATININE 0.6 mg/dL (0.5-1.0); GFR > 60 ML/MIN (>=60 (CALC)); GFR FOR AFR.AMER. > 60 ML/MIN (>=60 (CALC)); POTASSIUM 3.8 mmol/l (3.5-5.1); SGOT/AST 116 u/l (14-36); SODIUM 142 mmol/l (137-146); TOTAL PROTEIN 8.1 g/dL (6.3-8.2)
[2021-02-04 23:31] LABS: ETHYL ALCOHOL 354 mg/dl (0-30)
[2021-02-04 23:34] LABS: BETA-HCG, QUANT(RESULT NUMBER) <2 mIU/mL
== END 2021-02-05 09:24 | disposition home or self-care (01) | DRG 897 ==
DX: F10.129 Alcohol abuse with intoxication, unspecified (principal); F14.10 Cocaine abuse, uncomplicated; F17.200 Nicotine dependence, unspecified, uncomplicated

== ENCOUNTER 2022-02-27 15:10 | Emergency (ER) | payer SELFPAY ==
[~2022-02-27] VITALS: Ht 170.2 cm; Wt 85.0 kg
[2022-02-27 15:14] VITALS: BP 143/104
[2022-02-27 15:39] LABS: HEMATOCRIT 45.2 % (37.0-47.0); HEMOGLOBIN 15.3 g/dl (12.0-16.0); IMMATURE GRANULOCYTES 0.4 % (0.0-5.0); MEAN CORPUSCULAR HGB 30.8 pG CALC (26.0-32.0); MEAN CORPUSCULAR HGB CONC 33.8 g/dL CAL (32.0-36.0); NEUT# 6.39 thou/uL (2.00-7.15); RED BLOOD COUNT 4.97 mill/uL (4.20-5.60); RED CELL DISTRI WIDTH 12.9 % (11.5-15.5)
[2022-02-27 15:40] LABS: MEAN CELL VOLUME 90.9 fL CALC (80.0-100.0)
[2022-02-27 15:57] LABS: ALKALINE PHOSPHATASE 113 u/l (38-126); ANION GAP 21 (6-22 (CALC)); BILIRUBIN, TOTAL 0.4 mg/dL (0.0-1.4); BUN 12 mg/dL (7-17); BUN/CREATININE RATIO 17 (12-20 (CALC)); CARBON DIOXIDE 21 mmol/l (22-30); CHLORIDE 103 mmol/l (95-108); CPK 139 u/l (30-165); CREATININE 0.7 mg/dL (0.5-1.0); ETHYL ALCOHOL 275 mg/dl (0-30); GFR > 60 ML/MIN (>=60 (CALC)); GFR FOR AFR.AMER. > 60 ML/MIN (>=60 (CALC)); POTASSIUM 3.1 mmol/l (3.5-5.1); SGOT/AST 45 u/l (14-36); SODIUM 142 mmol/l (137-146); TOTAL PROTEIN 9.1 g/dL (6.3-8.2)
[2022-02-27 18:11] VITALS: BP 111/70
[2022-02-27 20:30] VITALS: BP 110/62
== END 2022-02-27 20:30 | DRG 885 ==
LOC: ED 15:10
PROVIDERS: Family Medicine
DX: F29 Unspecified psychosis not due to a substance or known physiological condition (principal); F10.129 Alcohol abuse with intoxication, unspecified; F31.9 Bipolar disorder, unspecified; F17.200 Nicotine dependence, unspecified, uncomplicated; T43.596A Underdosing of other antipsychotics and neuroleptics, initial encounter; Z91.128 Patient's intentional underdosing of medication regimen for other reason